=== PATIENT | female | born 1955 | race Caucasian/White ===

== ENCOUNTER 2017-02-27 11:24 | Day surgery (SDC) | payer OTHER ==
[~2017-02-27] VITALS: Ht 165.1 cm; Wt 54.4 kg
[~2017-02-27 11:24] MED LIST: 0.9% Sodium Chloride 1,000 ML IV SCH; ACYC400T2 PO; FLUO20CA25 PO; METO5TAB78 PO; RANI150C4 PO; SIMV20TA4 PO; SUCR1TAB PO; Sodium Chloride LOK Flush 10 mL Syringe IV PRN; TAFL1DRO OP; fentaNYL-PF 50 mCg/mL 2 mL Inj IVPUSH PRN
[2017-02-27 11:45] VITALS: BP 120/71; PULSE 60; RESP 15; O2SAT 100
[2017-02-27 12:49] VITALS: BP 106/61; PULSE 59; RESP 12; O2SAT 97
[2017-02-27 13:04] VITALS: BP 109/66; PULSE 58; RESP 11; O2SAT 97
--- NOTE | 2017-02-27 15:23 | ENDO ---
[address] [address] ENDOSCOPY PROCEDURE PATIENT: SANCHEZ LOPEZ : 1955 MR#: [id number] ADMIT: 02/27/2017 JOB ID: [id number] DATE OF SERVICE: 02/27/2017 PROCEDURE: Esophagogastroduodenoscopy with biopsies. INDICATIONS: A 61-year-old female with a history of esophageal cancer, status post gastric polyp surgery. She has trouble with gastroparesis, constipation and reflux. She is currently using ranitidine and Reglan, along with a dose of sucralfate daily. She has had trouble with esophagitis at the level of her anastomosis, and repeat examination is pursued today. EQUIPMENT: GIF-H180J. SEDATION: 1. Versed 4 mg Versed. 2. Fentanyl 100 mcg. COMPLICATIONS: None identified. PROCEDURE INFORMATION: After the risks and benefits were explained, written and verbal informed consent was obtained. The patient was brought into the endoscopy suite and placed into the left lateral decubitus position. Sedation was achieved as above. The scope introduced into the mouth through the bite block, and advanced to the second portion of the duodenum. The scope was slowly withdrawn to carefully examine the mucosa for any defects or lesions. Biopsies were acquired as below. The scope was removed from the patient who tolerated the procedure quite well. FINDINGS: 1. Duodenum: This appeared visually normal throughout the bulb through to the second portion. 2. Stomach: The patient had a mild diffuse gastropathy seen throughout. No gastric outlet obstruction. No ulcers. No mass lesions. There were some mild, old, well-healed erosive changes more proximally in the stomach. Random gastric biopsy was taken for exclusion of helicobacter or any other underlying pathology. There was a moderate amount of retained liquid and some scant solid debris that was easily suctioned up in the endoscope prior to completion of our assessment today. 3. Esophagus: The gastroesophageal anastomosis was at approximately 26 cm from the incisors. This was widely patent but appeared to be irregular, likely a consequence of inflammation, as there was a sizable, perhaps 15 mm x 8 mm, bland-based ulcer in the 4 o'clock location just proximal to the anastomosis. Multiple photographs were taken. Proximal to the ulcer the mucosa had a salmon color almost as though it was a short segment of Ruvalcaba's. We attempted to biopsy this segment. It was extremely friable, consistent with inflammation rather than the Ruvalcaba's. At any rate, we took some very small biopsies from this location and took a more sizable biopsy from the anastomosis proper and submitted these separately for histologic analysis. ENDOSCOPIC DIAGNOSES: 1. Patent gastroesophageal anastomosis. 2. Severe ulcerative esophagitis. 3. Mild gastropathy. RECOMMENDATIONS: 1. Await histopathology. 2. The patient is encouraged to increase antisecretory therapy to b.i.d. PPI from b.i.d. H2 receptor antagonist. 3. Sucralfate honey 1/2 teaspoon as needed for any breakthrough symptoms of reflux. She can thereafter continue the sucralfate only as needed instead of more regularly. 4. Repeat EGD in approximately eight weeks' time as long as all histology is benign to confirm healing of the ulcer with a change in therapy as dictated above.
--- NOTE | 2017-03-01 13:43 | PATH ---
SURGICAL PATHOLOGY Attending Physician:Guille Posada CASE STATUS: Signed Out PATIENT NAME: SANCHEZ LOPEZ PID: [id number] : 1955 DATE COLLECTED:02/27/2017 20:06 SPECIMEN: 1: Gastric, Biopsy 2: Esophagus, Biopsy 3: Esophagus, Biopsy CLINICAL HISTORY: 1). GASTRIC BIOPSY (RULE OUT H.PYLORI) 2). GASTRO-ESOPHAGEAL ANASTOMOSIS BIOPSY 3). ESOPHAGUS AT 24 BIOPSY FINAL DIAGNOSIS: 1.GASTRIC BIOPSY: ANTRAL MUCOSA WITH MILD CHRONIC AND ACTIVE GASTRITIS. Negative for Helicobacter organisms by immunohistochemistry. Negative for intestinal metaplasia. Negative for dysplasia and malignancy. 2.GASTROESOPHAGEAL ANASTOMOSIS BIOPSY: ULCERATED SQUAMOUS MUCOSA. A PAS STAIN IS NEGATIVE FOR FUNGAL ORGANISMS. Negative for dysplasia and malignancy. 3.ESOPHAGUS, 24 CM, BIOPSY: DETACHED FRAGMENT OF FIBRINOPURULENT EXUDATE. No evidence of dysplasia or malignancy. ICD10 R10.9 GROSS DESCRIPTION: The specimen is received in three formalin filled containers labeled with the patient's name. 1). The specimen is labeled "gastric" and consists of a 0.3 x 0.3 x 0.2 CM portion of tissue which is entirely submitted in cassette 1A. 2). The specimen is labeled "gastro-- esophagus" and consists of 2 portions of tissue which aggregate to 0.2 x 0.2 x 0.2 CM. The specimen is entirely submitted in cassette 2A. 3). The specimen is labeled "esophagus at 24" and consists of 3 extremely tiny portions of tissue which aggregate to less than 0.1 CM. The specimen is entirely submitted in cassette 3A. 02/27/2017DC MICRO DESCRIPTION: 1. An immunohistochemical stain was performed to evaluate for Helicobacter organisms and is negative. A control stain showed appropriate reactivity. 2. 3. PAS stains were performed to evaluate for fungal organisms and are negative in both parts. A control stain showed appropriate reactivity. This test was developed and its performance characteristics determined by [facility]. It has not been cleared or approved by the U. S. Food and Drug Administration. The FDA has determined that such clearance or approval is not necessary. This test is used for clinical purposes. It should not be regarded as investigational or for research. ICD-9 CODES: CPT CODES: 1: 43726, 87521 2: 09950, 36957 3: 62421, 36555 Electronically Signed Out Palma Mina MD [facility] [address], [place] [address] Technical component performed at [facility], [address], [place], [address]
== END 2017-02-27 23:59 | disposition home or self-care (01) ==
LOC: END 11:24
PROVIDERS: ATTEND Internal Medicine Gastroenterology
DX: K29.50 Unspecified chronic gastritis without bleeding (principal); K22.10 Ulcer of esophagus without bleeding; K31.9 Disease of stomach and duodenum, unspecified; K63.89 Other specified diseases of intestine; Z85.01 Personal history of malignant neoplasm of esophagus; K59.00 Constipation, unspecified; K21.9 Gastro-esophageal reflux disease without esophagitis; K31.84 Gastroparesis
CPT/HCPCS: 43239; 99153; G0500; J2250; J3010; J7030

== ENCOUNTER → 2017-05-01 | Day surgery (SDC) | payer OTHER ==
[~2017-05-01] VITALS: Ht 165.1 cm; Wt 54.4 kg
[~2017-05-01] MED LIST changes: +PANT40TA3 PO
[2017-05-01 15:11] VITALS: BP 121/75; PULSE 58; RESP 17; O2SAT 99
[2017-05-01 16:25] VITALS: BP 123/75; PULSE 66; RESP 16; O2SAT 96
[2017-05-01 16:43] VITALS: BP 118/72; PULSE 63; RESP 12; O2SAT 96
[2017-05-01 16:45] VITALS: BP 130/86; PULSE 70; RESP 12; O2SAT 97
--- NOTE | 2017-05-01 18:22 | ENDO ---
[address] [address] ENDOSCOPY PROCEDURE PATIENT: SANCHEZ LOPEZ : 1955 MR#: [id number] ADMIT: 05/01/2017 JOB ID: [id number] DATE: 05/01/2017 PROCEDURE: Esophagogastroduodenoscopy. INDICATION: A 62-year-old female with a personal history of esophageal cancer status post gastric pull-up surgery. At her last exam in February she had severe ulcerative esophagitis. Subsequently she has felt a marked improvement on b.i.d. pantoprazole. She has stopped sucralfate and remains on 20 mg of pantoprazole twice a day. She reports for repeat EGD to evaluate for mucosal healing. EQUIPMENT: GIF H 180 J SEDATION: 4 mg Versed and 100 mcg fentanyl. COMPLICATIONS: None identified. PROCEDURE INFORMATION: After the risks and benefits were explained, written and verbal informed consent was obtained. The patient was brought into the endoscopy suite and placed into the left lateral decubitus position. Sedation was achieved using the above-stated medications with the addition of oxygen via nasal cannula. The scope was introduced into the mouth through the bite block and advanced under direct visualization to the second portion of the duodenum. The scope was slowly withdrawn to carefully examine the mucosa for any defects or lesions. Multiple direct views were made to the region of the anastomosis. Because of the gastric pull-up anatomy I did not retroflex in the stomach. Ultimately the stomach was decompressed and scope removed from the patient, who tolerated the procedure well. FINDINGS: 1. Duodenum: No mucosal pathology appreciated throughout. 2. Stomach: No outlet obstruction. No ulcers. No mass lesions. 3. Esophagus: The previously identified gastroesophageal surgical anastomosis at 26 cm was again noted. There was a small focus of ulceration on the gastric cardia side associated with a retained suture. There was considerable healing of the ulceration previously noted. We evaluated the photographs from February to compare with present day and there still is evidence of LA grade C erosive esophagitis, but clearly a significant improvement. I did not repeat any biopsies at present. ENDOSCOPIC DIAGNOSIS: 1. Patent gastroesophageal anastomosis. 2. LA grade C erosive esophagitis. RECOMMENDATIONS: 1. Continue pantoprazole 20 mg twice daily. 2. Continue [place] honey as needed for breakthrough symptoms. 3. There was an element of some retained food debris and liquid still in the stomach today. I think that perhaps increasing the Reglan to better facilitate gastric emptying may augment the anti-reflux effect without the need for increasing the dose of PPI. 4. We will make the above recommendation and bring her back to the office for clinical followup. 5. I think it would be otherwise reasonable to repeat EGD for recheck in approximately six months.
== END | disposition home or self-care (01) ==
LOC: END 02:28
PROVIDERS: ATTEND Internal Medicine Gastroenterology
DX: K22.10 Ulcer of esophagus without bleeding (principal); K31.84 Gastroparesis; Z85.01 Personal history of malignant neoplasm of esophagus; Z79.899 Other long term (current) drug therapy